=== PATIENT | female | born 1940 | race American Indian/Alaskan Native ===

== ENCOUNTER 2016-10-07 09:25 | Outpatient (CLI) | payer MEDICARE ==
--- NOTE | 2016-10-07 10:20 | Mammography Report ---
Left mammogram 2 views status post biopsy and clip placement: Findings: Single clip is identified at 6:00 position 4 cm from nipple and a second tip is identified at 5:00 position 5 cm from nipple. There is a oval density measuring 1.5 cm in diameter density noted in in the anterior left breast on CC view and not seen on MLO view. Density was present in the previous study dated . Impression: Findings as detailed above. Probably discordant placement of the clips compared to the density if density was suspected to be biopsied. Clinical correlation is advised. If necessary further evaluation recommended. BI-RADS CATEGORY: 0 = Needs additional imaging evaluation ACR BI-RADS MAMMOGRAPHIC CODES: 0 = Needs additional imaging evaluation; 1 = Negative; 2 = Benign; 3 = Probably benign; 4 = Suspicious; 5 = Malignant; 6 = Known biopsy-proven malignancy COMMENT: 1. Dense breast tissue, i.e., adenosis, fibrocystic changes, etc., may obscure an underlying neoplasm. 2. Approximately 10% of cancers are not detected with mammography. 3. A negative mammography report should not delay biopsy if a clinically suspicious mass is present.
== END 2016-10-07 09:26 | disposition home or self-care (01) ==
LOC: SPVWC 09:25
PROVIDERS: ATTEND Surgery
DX: R92.2 Inconclusive mammogram (principal)
CPT/HCPCS: G0206-LT

== ENCOUNTER 2016-10-09 08:25 | Outpatient (CLI) | payer MEDICARE | END 2016-10-09 08:26 | disposition home or self-care (01) | LOC: LABHHL 08:25 | PROVIDERS: ATTEND Surgery | DX: N60.82 Other benign mammary dysplasias of left breast (principal); N63 Unspecified lump in breast | CPT/HCPCS: 88305 ==

== ENCOUNTER 2016-10-14 09:48 | Outpatient (CLI) | payer MEDICARE ==
--- NOTE | 2016-10-15 13:39 | Ultrasound Report ---
LEFT BREAST ULTRASOUND: 10/14/16 09:48:00 CLINICAL: Status post benign recent left ultrasound biopsy. It was determined after the biopsy that the biopsy site was discordant with the description of a circumscribed inner mass on a [facility] report. COMPARISON: 10/07/16 [facility] post biopsy mammogram and an earlier 2017 [facility] mammogram. FINDINGS: Ultrasound of the left breast(including all four quadrants and the retroareolar area) was performed. A benign anechoic cyst with irregular shape at 9 o'clock 4 cm from nipple correlates with the mammographic density. It measures 1.7 x 1.7 x 0.6 cm. No solid mass or shadowing. A heterogeneous hypoechoic area at 4 o'clock 3 cm from the nipple correlates with the recent benign biopsy site. IMPRESSION: Benign left breast cyst at 9 o'clock. BI-RADS 2 - - Benign RECOMMENDATION: Routine mammographic screening.
== END 2016-10-14 09:49 | disposition home or self-care (01) ==
LOC: SPVWC 09:48
PROVIDERS: ATTEND Surgery
DX: N60.02 Solitary cyst of left breast (principal)